=== PATIENT | female | born 1930 | race Caucasian/White ===

== ENCOUNTER → 2016-12-12 | Outpatient (CLI) | payer BC ==
[~2016-12-12] MED LIST: ACET325T96 PO; B-CO1CAP17 PO; CALC8.5C; CHOL20007 PO; CLOP1TAB15 PO; CLR10 PO; DENO60SO SQ; FURO-85 PO; GABA-113 PO; LACT10CA3 PO; METHPOW7 PO; METO50TA7 PO; MGN PO; MULT-513 PO; OMEGCAP2 PO; OMEP20TA PO; POLY335025 PO; TERA5CAP PO; TRAM-10 PO; TRIA0.1C20 TOP; VITA400C15 PO; potassium chloride
--- NOTE | 2016-12-13 07:42 | MAMMOGRAPHY REPORT ---
UNILATERAL LEFT DIGITAL SCREENING MAMMOGRAM TOMOSYNTHESIS WITH CAD: 12/12/2016 CLINICAL HISTORY: Asymptomatic. Personal history of breast cancer. TECHNIQUE: Breast tomosynthesis in addition to standard 2D mammography was performed. Current study was also evaluated with a Computer Aided Detection (CAD) system. Left CC and MLO 2-D and tomosynth esis images were obtained. COMPARISON: Comparison is made to exams dated: 04/14/2015 ultrasound, 04/14/2015 mammogram, 10/14/2014 ma mmogram, 06/07/2013 mammogram - [facility], 08/30/2008, and 08/07/2006 mammogram - [facility]. BREAST COMPOSITION: The tissue of the left breast is heterogeneously dense, which may obscure small masses. FINDINGS: There are no suspicious masses, calcifications, or areas of architectural distortion noted in the left breast. There has been no significant change compared to prior exams. A biopsy marker clip is again noted in the left 12:00 breast. Round circumscribed benign-appearing 6 mm mass seen within the left upper outer quadrant is stable dating back to the 2012 exam, and decreased in size c ompared to the 2007 exam, and is therefore considered benign. Scattered benign-appearing calcificat ions are not significantly changed. Status post right mastectomy. IMPRESSION: ACR BI-RADS CATEGORY 2: BENIGN There is no mammographic evidence of malignancy in the left breast. A 1 year screening mammogram is recommended. The patient will receive written notification of the results. Approximately 10% of breast cancers are not detected with mammography. A negative mammographic repor t should not delay biopsy if a clinically suggestive mass is present. Yvonne Roach M.D. ah/:12/12/2016 15:17:21 Attending Technologist: Kalli Garcia, [facility] Outside Sales Account Representative: Yaquelin JAMESON(Johnnie)(M), [facility] letter sent: Normal 1/2 BI-RADS Code: ACR BI-RADS Category 2: Benign
== END | disposition home or self-care (01) ==
LOC: C.MAMM 13:33
PROVIDERS: ATTEND Nurse Practitioner
DX: Z12.31 Encounter for screening mammogram for malignant neoplasm of breast (principal); Z90.11 Acquired absence of right breast and nipple; Z85.3 Personal history of malignant neoplasm of breast

== ENCOUNTER → 2017-02-26 | Outpatient (CLI) | payer BC ==
[2017-02-26 13:20] LABS: BASO % 0.4 %; BASO ABS # 0.02 K/uL (0-0.2); COMPLETE YES; EOS % 5.1 %; HEMATOCRIT 39.7 % (37-47); IG% 0.2 %; LYMPH % 23.5 %; LYMPH ABS # 1.15 K/uL (1.2-3.4); MEAN CELL VOLUME 91.5 fL (80-100); MEAN CORPUSCULAR HEMOGLOBIN 29.7 pg (25-34); MEAN CORPUSCULAR HGB CONC 32.5 g/dl (32-36); MEAN PLATELET VOLUME 8.6 fL (7.4-10.4); MONO % 9.6 %; NEUT % 61.2 %; PLATELET COUNT 223 K/uL (130-400); RED BLOOD COUNT 4.34 M/uL (4.2-5.4)
[2017-02-26 13:56] LABS: ALT/SGPT 27 U/L (12-78); AST/SGOT 21 U/L (15-37); BLOOD UREA NITROGEN 21 mg/dl (7-18); CALCIUM 8.8 mg/dl (8.5-10.1); CARBON DIOXIDE 25 mmol/L (21-32); CHLORIDE 111 mmol/L (98-107); CHOLESTEROL 204 mg/dl (0-200); GLUCOSE 84 mg/dl (70-99); POTASSIUM 4.3 mmol/L (3.5-5.1); SODIUM 144 mmol/L (136-145)
[2017-02-26 13:59] LABS: ALKALINE PHOSPHATASE 74 U/L (45-117); CHOLESTEROL/HDL RATIO 2.6; HDL CHOLESTEROL 79 mg/dl; LDL CHOLESTEROL CALCULATED 102 mg/dl; TRIGLYCERIDES 115 mg/dl (0-150); VERY LOW DENSITY LIPOPROT CALC 23 mg/dl
== END | disposition home or self-care (01) ==
LOC: C.LAB1850 12:16
PROVIDERS: ATTEND Internal Medicine
DX: C50.919 Malignant neoplasm of unspecified site of unspecified female breast (principal); E78.5 Hyperlipidemia, unspecified; E55.9 Vitamin D deficiency, unspecified